=== PATIENT | female | born 1935 | race Caucasian/White ===

== ENCOUNTER 2017-03-30 11:21 | Emergency (ER) | payer OTHER, BC ==
[2017-03-30 11:33] VITALS: BP 128/76; PULSE 70; TEMP 98.4; BMI 25.5
[2017-03-30] MEDS ORDERED: KETOROLAC TROMETHAMINE 30 MG/1 ML VIAL IM ONE (12:08)
[2017-03-30] MEDS ORDERED: KETOROLAC TROMETHAMINE 30 MG/1 ML VIAL ONE (12:11)
--- NOTE | 2017-03-30 12:19 | PDOC ---
History of Present Illness - General Chief Complaint: Injury Stated Complaint: FALL Time Seen by Provider: 03/30/17 11:55 History Source: Patient Exam Limitations: No Limitations - History of Present Illness Initial Comments: 03/30/17 12:14 CC tripped and fell ontu shopping cart x 5 days ago with pain left lower ribs and left knee Occurred: reports: last week Severity: reports: moderate Pain Location: reports: chest, lower extremity Method of Injury: Yes: fall Past History - Past Medical History Allergies/Adverse Reactions: Allergies Allergy/AdvReac Type Severity Reaction Status Date / Time No Known Allergies Allergy Verified 03/30/17 11:29 Home Medications: Ambulatory Orders Unobtainable [Unobtainable] 03/30/17 Dementia: Yes HTN: Yes Psychiatric Problems: Yes (anxeity) - Suicide/Smoking/Psychosocial Hx Smoking History: Never smoked Have you smoked in the past 12 months: No Information on smoking cessation initiated: No Hx Alcohol Use: No Drug/Substance Use Hx: No Substance Use Type: None Review of Systems - Review of Systems Constitutional: No: Chills, Fever HEENTM: No: Symptoms Reported, Nose Pain Respiratory: No: Cough, Shortness of Breath, SOB with Exertion, SOB at Rest, Wheezing, Productive cough Cardiac (ROS): Yes: Chest Pain (left anterior lower CW pain) *Physical Exam - Vital Signs Last Vital Signs Temp Pulse Resp BP Pulse Ox 98.4 F 70 18 128/76 95 03/30/17 11:29 03/30/17 11:29 03/30/17 11:29 03/30/17 11:29 03/30/17 11:29 - Physical Exam General Appearance: Yes: Appropriately Dressed, Apparent Distress Neck: positive: Supple. negative: Tender, Rigid Respiratory/Chest: positive: Chest Tender (tender to area left lower anterior, lateral ribs, no obv deformity nor bruising), Lungs Clear, Normal Breath Sounds. negative: Labored Respiration Gastrointestinal/Abdominal: positive: Normal Bowel Sounds, Flat, Soft. negative : Tender, Organomegaly, Tenderness Musculoskeletal: positive: Other (ambulating well; bruising over patella with STS; FROM knee, no palp defomity) ED Treatment Course - RADIOLOGY Radiology Studies Ordered: Category Date Time Status RIBS-LEFT SIDE [RAD] Stat Radiology 03/30/17 12:05 Ordered Medical Decision Making - Medical Decision Making 03/30/17 12:32 xray read by me notes no fracture; will refer to ortho for joint pain unrelated to present Trauma; is taking Tylenol ES with good results at home *DC/Admit/Observation/Transfer Diagnosis at time of Disposition: Contusion of rib on left side Qualifiers: Encounter type: initial encounter Qualified Code(s): S20.212A - Contusion of left front wall of thorax, initial encounter; S20.212A - Contusion of left front wall of thorax, initial encounter Contusion of left patella Qualifiers: Encounter type: initial encounter Qualified Code(s): S80.02XA - Contusion of left knee, initial encounter; S80.02XA - Contusion of left knee, initial encounter - Discharge Dispostion Disposition: HOME Condition at time of disposition: Stable - Patient Instructions Additional Instructions: please see Dr Villarreal for shoulder pain/ knee pain; see local MD next week for reevaluation of rib injury
== END 2017-03-30 12:48 | disposition home or self-care (01) ==
LOC: JERFT 11:21
PROC: 3E0233Z Introduction of Anti-inflammatory into Muscle, Percutaneous Approach (ICD-10-PCS; principal; 2017-03-30)
DX: S80.02XA Contusion of left knee, initial encounter (principal); S20.212A Contusion of left front wall of thorax, initial encounter; I10 Essential (primary) hypertension; F03.90 Unspecified dementia, unspecified severity, without behavioral disturbance, psychotic disturbance, mood disturbance, and anxiety; F41.9 Anxiety disorder, unspecified; W01.0XXA Fall on same level from slipping, tripping and stumbling without subsequent striking against object, initial encounter; Y93.89 Activity, other specified; Y92.512 Supermarket, store or market as the place of occurrence of the external cause
CPT/HCPCS: 71101-TC; 96372; 99281-25

== ENCOUNTER 2019-01-04 10:40 | Emergency (ER) | payer OTHER, BC ==
[2019-01-04 10:55] VITALS: BP 126/62; PULSE 64; TEMP 98.2; BMI 23.5
[2019-01-04] MEDS ORDERED: IBUPROFEN 600 MG TABLET (FP) PO ONE ×2 (11:28→11:29)
--- NOTE | 2019-01-04 11:33 | PDOC ---
History of Present Illness - General Chief Complaint: Injury Stated Complaint: RT. HAND PAIN/ FALL Time Seen by Provider: 01/04/19 11:17 History Source: Patient Exam Limitations: No Limitations - History of Present Illness Initial Comments: 01/04/19 11:29 HISTORY OF PRESENT ILLNESS: 84-year-old woman past medical history of hypertension who presents emergency department for evaluation of right ankle pain status post trip and fall on 01/03. Patient states she was walking through her house her had left tissues in the middle floor. Patient tripped over shoes and fell forward landing on an outstretched right hand. Patient reports increased pain since the incident but has not taken any medication. Patient is right-hand dominant. She denies any chest pain, shortness of breath, lightheadedness, dizziness prior to fall. No recent travel or sick contacts. PAST MEDICAL HISTORY: see HPI SURGICAL HISTORY: Denies ALLERGIES: No known drug allergies REVIEW OF SYSTEMS General/Constitutional: Denies fever or chills. Denies weakness, weight change. HEENT: Denies change in vision. Denies ear pain or discharge. Denies sore throat. Cardiovascular: Denies chest pain or shortness of breath. Respiratory: Denies cough, wheezing, or hemoptysis. Gastrointestinal: Denies nausea, vomiting, diarrhea or constipation. Denies rectal bleeding. Genitourinary: Denies dysuria, frequency, or change in urination. Musculoskeletal: see HPI Skin and breasts: Denies rash or easy bruising. Neurologic: Denies headache, vertigo, loss of consciousness, or loss of sensation. Psychiatric: Denies depression or anxiety. Endocrine: Denies increased thirst. Denies abnormal weight change. Hematologic/Lymphatic: Denies anemia, easy bleeding, or history of blood clots. Allergic/Immunologic: Denies hives or skin allergy. Denies latex allergy. PHYSICAL EXAM General Appearance: Well-appearing, appropriately dressed. No apparent distress , no intoxication. Respiratory/Chest: Lungs CTAB. No shortness of breath, chest tenderness, respiratory distress, accessory muscle use. No crackles, rales, rhonchi, stridor , wheezing, dullness Cardiovascular: RRR. S1, S2. No JVD, murmur, bradycardia, tachycardia. Musculoskeletal/Extremities: Ecchymosis present to the dorsum of the right hand over the fourth and fifth metacarpals. Deformity present on palpation of the right fifth metacarpal. Increased pain with palpation. No crepitus present. Integumentary: Ecchymosis present to the dorsum of the right hand over the fourth and fifth metacarpals. 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 Fully oriented, alert. Appropriate mood/affect. Motor strength 5/5. No appreciable EOM palsy, facial droop or sensory deficit. Past History - Past Medical History Allergies/Adverse Reactions: Allergies Allergy/AdvReac Type Severity Reaction Status Date / Time No Known Allergies Allergy Verified 01/05/19 09:23 Home Medications: Ambulatory Orders Amlodipine Besylate [Norvasc -] 10 mg PO DAILY 01/04/19 Escitalopram Oxalate [Lexapro -] 20 mg PO DAILY 01/04/19 Lisinopril [Zestril] 20 mg PO DAILY 01/04/19 Metoprolol Tartrate [Lopressor -] 25 mg PO BID 01/04/19 Simvastatin [Zocor] 10 mg PO HS 01/04/19 COPD: No Dementia: Yes HTN: Yes Psychiatric Problems: Yes (anxeity) - Suicide/Smoking/Psychosocial Hx Smoking History: Never smoked Have you smoked in the past 12 months: No Hx Alcohol Use: No Drug/Substance Use Hx: No Substance Use Type: None *Physical Exam - Vital Signs Last Vital Signs Temp Pulse Resp BP Pulse Ox 98.2 F 64 18 126/62 95 01/04/19 10:52 01/04/19 10:52 01/04/19 10:52 01/04/19 10:52 01/04/19 10:52 Procedures - Consent Consent obtained: Verbal, From Patient - Splinting Splint Location: Right: Hand Pre-Proc Neuro Vasc Exam: normal Hand-Made Type: orthoglass Splint Type: Yes: Ulnar Post-Proc Neuro Vasc Exam: normal, unchanged from pre-exam Jass Bandage: 2" Sling: No Complications: No Post splint xray: No Progress: 01/04/19 11:52 pt tolerated well. ED Treatment Course - RADIOLOGY Radiology Studies Ordered: Category Date Time Status HAND- RIGHT [RAD] Stat Radiology 01/04/19 11:28 Ordered Medical Decision Making - Medical Decision Making 01/04/19 11:33 A/P: 84-year-old woman with right hand pain status post fall Given palpable deformity and increased pain upon palpation is a high likelihood of boxer's fracture. X-ray Motrin 600 mg orally Reassess 01/04/19 11:52 X-ray show an acute fracture through the neck of the right fifth distal metacarpal. Number angulation distal fracture fragment noted. No significant displacement. Splint Discharge home with orthopedic follow-up *DC/Admit/Observation/Transfer Diagnosis at time of Disposition: Boxer's fracture Qualifiers: Encounter type: subsequent encounter Fracture type: closed Fracture healing: with routine healing Qualified Code(s): S62.339D - Displaced fracture of neck of unspecified metacarpal bone, subsequent encounter for fracture with routine healing - Discharge Dispostion Disposition: HOME Condition at time of disposition: Fair Decision to Admit order: No - Referrals Referrals: Paula Blanco [Primary Care Provider] - Aristides Pierce MD [Staff Physician] - - Patient Instructions Additional Instructions: REST. Take Tylenol or Motrin as needed for pain. Follow manufacturers instructions for appropriate dosage. Apply ice for 20 minutes and removed for at least 20 minutes before reapplying the ice. Keep splint on at all times. Whenever possible keep your hand elevated to decrease swelling. You've been given the number for an orthopedist. If symptoms do not resolve within the next 7 days call the orthopedist for further evaluation. Return to emergency department for discoloration of the fingers, numbness or tingling to the fingers, worsening pain, or any other concerns. Thank you very much for choosing us to provide your emergent healthcare needs. - Post Discharge Activity
== END 2019-01-04 11:56 | disposition home or self-care (01) ==
LOC: JERFT 10:40
PROC: 2W3CX1Z Immobilization of Right Lower Arm using Splint (ICD-10-PCS; principal; 2019-01-04)
PROC: 2W3CX1Z Immobilization of Right Lower Arm using Splint (ICD-10-PCS; 2019-01-04)
DX: S62.339A Displaced fracture of neck of unspecified metacarpal bone, initial encounter for closed fracture (principal); W18.09XA Striking against other object with subsequent fall, initial encounter; Y93.89 Activity, other specified; Y92.008 Other place in unspecified non-institutional (private) residence as the place of occurrence of the external cause; I10 Essential (primary) hypertension; F41.9 Anxiety disorder, unspecified; F03.90 Unspecified dementia, unspecified severity, without behavioral disturbance, psychotic disturbance, mood disturbance, and anxiety
CPT/HCPCS: 29125; 73130-TC-RT-FY; 99282-25

== ENCOUNTER 2019-01-05 09:00 | Emergency (ER) | payer OTHER, BC ==
[2019-01-05 09:23] VITALS: BP 148/73; PULSE 70; TEMP 98; BMI 23.5
--- NOTE | 2019-01-05 09:30 | PDOC ---
History of Present Illness - General Chief Complaint: Edema Stated Complaint: RT HAND SWELLING Time Seen by Provider: 01/05/19 09:29 History Source: Patient Exam Limitations: No Limitations - History of Present Illness Initial Comments: 01/05/19 09:30 Patient came for evaluation of severe swelling and pain to right hand where was splinted yesterday for boxer's fracture. Had ulnar gutter splint placed but Jass wrap's became very tight and patient had some compression swelling with soft tissue contusions/inflammation at thenar eminence. Denies numbness or tingling to fingers but are painful 01/05/19 14:12 Timing/Duration: 24 hours Severity: moderate, severe Past History - Travel Traveled outside of the country in the last 30 days: No Close contact w/someone who was outside of country & ill: No - Past Medical History Allergies/Adverse Reactions: Allergies Allergy/AdvReac Type Severity Reaction Status Date / Time No Known Allergies Allergy Verified 01/05/19 09:23 Home Medications: Ambulatory Orders Amlodipine Besylate [Norvasc -] 10 mg PO DAILY 01/04/19 Escitalopram Oxalate [Lexapro -] 20 mg PO DAILY 01/04/19 Lisinopril [Zestril] 20 mg PO DAILY 01/04/19 Metoprolol Tartrate [Lopressor -] 25 mg PO BID 01/04/19 Simvastatin [Zocor] 10 mg PO HS 01/04/19 COPD: No Dementia: Yes HTN: Yes Psychiatric Problems: Yes (anxeity) - Suicide/Smoking/Psychosocial Hx Smoking History: Never smoked Have you smoked in the past 12 months: No Hx Alcohol Use: No Drug/Substance Use Hx: No Substance Use Type: None Review of Systems - Review of Systems Able to Perform ROS?: Yes Is the patient limited Gambian proficient: Yes Constitutional: Yes: See HPI. No: Symptoms Reported, Fever HEENTM: No: Symptoms Reported Musculoskeletal: Yes: See HPI, Joint Swelling, Joint Stiffness Integumentary: Yes: Symptoms Reported, See HPI, Bruising All Other Systems: Reviewed and Negative *Physical Exam - Vital Signs Last Vital Signs Temp Pulse Resp BP Pulse Ox 98 F 70 18 148/73 99 01/05/19 09:19 01/05/19 09:19 01/05/19 09:19 01/05/19 09:19 01/05/19 09:19 - Physical Exam General Appearance: Yes: Nourished, Appropriately Dressed, Apparent Distress, Mild Distress, Moderate Distress HEENT: positive: ZAC, Normal ENT Inspection, TMs Normal, Pharynx Normal, Pale Conjunctivae Extremity: positive: Normal Capillary Refill Integumentary: positive: Dry, Warm, Swelling (severe swelling to the hand with compression at site of Jass wrap. 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 intact, Fully Oriented, Alert, Normal Mood/ Affect, Normal Response, Motor Strength 5/5 *DC/Admit/Observation/Transfer Diagnosis at time of Disposition: Boxer's fracture Qualifiers: Encounter type: subsequent encounter Fracture type: closed Fracture healing: with routine healing Qualified Code(s): S62.339D - Displaced fracture of neck of unspecified metacarpal bone, subsequent encounter for fracture with routine healing - Discharge Dispostion Disposition: HOME Condition at time of disposition: Stable - Referrals Referrals: Vicente Warren MD [Staff Physician] - - Patient Instructions Printed Discharge Instructions: How to Take Care of Your Cast Additional Instructions: Rest, ice to area on and off for 15 minutes 4-6 times a day Avoid heavy lifting or exercise until pain and swelling is resolved or until further directed Keep area highly elevated to reduce swelling Use splints/Jass wrap as directed Followup with orthopedist in one to 2 days if not improving, if significantly improved may wait one week for followup with orthopedist May use ibuprofen every 6 hours as needed for pain - Post Discharge Activity
== END 2019-01-05 10:07 | disposition home or self-care (01) ==
LOC: JERFT 09:00
DX: S62.309D Unspecified fracture of unspecified metacarpal bone, subsequent encounter for fracture with routine healing (principal); X58.XXXD Exposure to other specified factors, subsequent encounter; F03.90 Unspecified dementia, unspecified severity, without behavioral disturbance, psychotic disturbance, mood disturbance, and anxiety; I10 Essential (primary) hypertension; F41.9 Anxiety disorder, unspecified
CPT/HCPCS: 99281-25

== ENCOUNTER 2020-08-08 09:04 | Inpatient (IN) | payer OTHER, BC ==
[2020-08-08] MEDS ORDERED: KETOROLAC TROMETHAMINE 30 MG/1 ML VIAL IM ONE (10:10)
[2020-08-08] MEDS ORDERED: morphine CARPU-JECT 4 MG/1 ML DISP.SYRIN IVPUSH ONE (10:13)
[2020-08-08] MEDS ORDERED: morphine SULFATE 4 MG/ML VIAL ONE (10:35)
[2020-08-08 10:54] LABS: BASO % 0.6 % (0-2.0); EOS % 0.5 % (0-4.5); HEMATOCRIT 44.4 % (32.4-45.2); HEMOGLOBIN 15.1 GM/dL (10.7-15.3); LYMPH % 7.5 % (8-40); MCH 31.9 pg (25.7-33.7); MEAN CELL VOLUME 93.9 fl (80-96); MEAN PLT VOLUME 7.6 fl (7.5-11.1); MONO % 5.8 % (3.8-10.2); NEUT % 85.6 % (42.8-82.8); PLATELET COUNT 189 K/MM3 (134-434); RBC 4.73 M/mm3 (3.60-5.2); RDW 13.7 % (11.6-15.6); WHITE BLOOD COUNT 10.2 K/mm3 (4.0-10.0)
[2020-08-08 10:57] LABS: POTASSIUM 3.6 mmol/L (3.5-5.1)
[2020-08-08 10:59] LABS: CALCIUM 9.2 mg/dL (8.5-10.1)
[2020-08-08 11:01] LABS: ALBUMIN 3.9 g/dl (3.4-5.0); BLOOD UREA NITROGEN 9.8 mg/dL (7-18)
[2020-08-08 11:04] LABS: CREATININE 0.9 mg/dL (0.55-1.3); INR 1.09 (0.83-1.09); PROTHROMBIN TIME (PATIENT) 13.1 SEC (9.7-13.0)
[2020-08-08 11:05] LABS: TOT PROT 7.4 g/dl (6.4-8.2)
[2020-08-08 11:14] LABS: BILIRUBIN,TOTAL 1.7 mg/dL (0.2-1)
[2020-08-08] MEDS ORDERED: ACETAMINOPHEN 325 MG TABLET (FP) PO PRN ×2 (12:26→12:45)
[2020-08-08] MEDS: oxyCODONE HCL 5 MG TABLET PO PRN ×2 (14:15→21:13)
[2020-08-08 15:33] VITALS: BMI 24.0
[2020-08-08] MEDS: METOPROLOL TARTRATE 25 MG TABLET (FP) PO SCH (21:13)
[2020-08-08] MEDS: HEPARIN NA (PORCINE) 5,000 UNITS/ML 1ML VIAL SQ SCH (21:15)
[2020-08-08] MEDS: ATORVASTATIN CA 10 MG TABLET (FP) PO SCH (21:15)
[2020-08-08 22:43] LABS: EPI CELLS 10 /uL (0-25.1); HYALINE CASTS 27 /uL (0-3.1); URINE APPEARANCE CLOUDY; URINE BACTERIA >9,000 /uL (0-1359); URINE BILIRUBIN NEGATIVE (NEGATIVE); URINE COLOR YELLOW; URINE GLUCOSE (UA) NEGATIVE (NEGATIVE); URINE KETONE 2+ (NEGATIVE); URINE LEUK ESTERASE 1+ (NEGATIVE); URINE NITRITE NEGATIVE (NEGATIVE); URINE PROTEIN 1+ (NEGATIVE); URINE UROBILINOGEN 0.2 mg/dL (0.2-1.0); URINE WBC 170 /uL (0-25.8)
[2020-08-08 23:27] LABS: URINE RBC 10.7 /uL (0-23.9)
[2020-08-09 09:10] LABS: BASO % 1.3 % (0-2.0); HEMATOCRIT 42.5 % (32.4-45.2); HEMOGLOBIN 14.5 GM/dL (10.7-15.3); LYMPH % 10.7 % (8-40); MCH 31.9 pg (25.7-33.7); MCHC 34.2 g/dl (32.0-36.0); MEAN CELL VOLUME 93.3 fl (80-96); MEAN PLT VOLUME 7.8 fl (7.5-11.1); MONO % 7.3 % (3.8-10.2); NEUT % 79.7 % (42.8-82.8); PLATELET COUNT 190 K/MM3 (134-434); RBC 4.56 M/mm3 (3.60-5.2); RDW 13.7 % (11.6-15.6); WHITE BLOOD COUNT 10.6 K/mm3 (4.0-10.0)
[2020-08-09 09:20] LABS: POTASSIUM 3.8 mmol/L (3.5-5.1)
[2020-08-09] MEDS ORDERED: ESCITALOPRAM OXALATE 10 MG TABLET ONE (09:20)
[2020-08-09 09:34] LABS: ALBUMIN 3.5 g/dl (3.4-5.0); BLOOD UREA NITROGEN 12.9 mg/dL (7-18); CALCIUM 8.9 mg/dL (8.5-10.1)
[2020-08-09 09:38] LABS: BILIRUBIN,TOTAL 1.5 mg/dL (0.2-1); CREATININE 0.8 mg/dL (0.55-1.3); TOT PROT 7.3 g/dl (6.4-8.2)
[2020-08-09] MEDS: HEPARIN NA (PORCINE) 5,000 UNITS/ML 1ML VIAL SQ SCH ×2 (09:40→22:15)
[2020-08-09] MEDS: ESCITALOPRAM OXALATE 20 MG TABLET PO SCH (09:41)
[2020-08-09] MEDS: amLODIPine BESYLATE 10 MG TABLET (FP) PO SCH (09:42)
[2020-08-09] MEDS: LISINOPRIL 20 MG TABLET PO SCH (09:42)
[2020-08-09] MEDS: METOPROLOL TARTRATE 25 MG TABLET (FP) PO SCH ×2 (09:42→22:15)
[2020-08-09] MEDS: oxyCODONE HCL 5 MG TABLET PO PRN ×2 (10:05→22:14)
[2020-08-09] MEDS: ATORVASTATIN CA 10 MG TABLET (FP) PO SCH (22:14)
[2020-08-10] MEDS ORDERED: ESCITALOPRAM OXALATE 10 MG TABLET ONE (09:20)
[2020-08-10] MEDS: amLODIPine BESYLATE 10 MG TABLET (FP) PO SCH (09:23)
[2020-08-10] MEDS: METOPROLOL TARTRATE 25 MG TABLET (FP) PO SCH ×2 (09:23→21:39)
[2020-08-10] MEDS: CHOLECALCIFEROL (VIT D3) 1,000 UNIT (25 MCG) TABLET PO SCH (09:24)
[2020-08-10] MEDS: HEPARIN NA (PORCINE) 5,000 UNITS/ML 1ML VIAL SQ SCH ×2 (09:24→21:38)
[2020-08-10] MEDS: LISINOPRIL 20 MG TABLET PO SCH (09:24)
[2020-08-10] MEDS: ESCITALOPRAM OXALATE 20 MG TABLET PO SCH (09:25)
[2020-08-10] MEDS: oxyCODONE HCL 5 MG TABLET PO PRN (09:25)
[2020-08-10] MEDS: POLYETHYLENE GLYCOL 3350 119 GM BTL PO SCH (10:43)
[2020-08-10] MEDS: CEPHALEXIN MONOHYDRATE 500 MG CAPSULE (UD) PO SCH ×3 (10:43→21:39)
[2020-08-10] MEDS: ATORVASTATIN CA 10 MG TABLET (FP) PO SCH (21:38)
[2020-08-11] MEDS: CEPHALEXIN MONOHYDRATE 500 MG CAPSULE (UD) PO SCH ×2 (05:38→13:16)
[2020-08-11 09:34] LABS: BASO % 1.3 % (0-2.0); EOS % 3.3 % (0-4.5); HEMATOCRIT 42.7 % (32.4-45.2); HEMOGLOBIN 14.4 GM/dL (10.7-15.3); LYMPH % 14.6 % (8-40); MCH 31.8 pg (25.7-33.7); MCHC 33.7 g/dl (32.0-36.0); MEAN CELL VOLUME 94.2 fl (80-96); MEAN PLT VOLUME 8.3 fl (7.5-11.1); MONO % 10.5 % (3.8-10.2); NEUT % 70.3 % (42.8-82.8); PLATELET COUNT 195 K/MM3 (134-434); RBC 4.54 M/mm3 (3.60-5.2); RDW 13.4 % (11.6-15.6); WHITE BLOOD COUNT 7.7 K/mm3 (4.0-10.0)
[2020-08-11 09:44] LABS: POTASSIUM 3.8 mmol/L (3.5-5.1)
[2020-08-11] MEDS ORDERED: ESCITALOPRAM OXALATE 10 MG TABLET ONE (09:56)
[2020-08-11] MEDS ORDERED: PT OWN MED DRAWER 7, Y5N ONE (09:59)
[2020-08-11] MEDS: LISINOPRIL 20 MG TABLET PO SCH (10:00)
[2020-08-11] MEDS: amLODIPine BESYLATE 10 MG TABLET (FP) PO SCH (10:00)
[2020-08-11] MEDS: METOPROLOL TARTRATE 25 MG TABLET (FP) PO SCH (10:00)
[2020-08-11] MEDS: CHOLECALCIFEROL (VIT D3) 1,000 UNIT (25 MCG) TABLET PO SCH (10:00)
[2020-08-11] MEDS: HEPARIN NA (PORCINE) 5,000 UNITS/ML 1ML VIAL SQ SCH (10:00)
[2020-08-11] MEDS: ESCITALOPRAM OXALATE 20 MG TABLET PO SCH (10:01)
[2020-08-11 10:07] LABS: ALBUMIN 3.4 g/dl (3.4-5.0); BLOOD UREA NITROGEN 23.1 mg/dL (7-18); CALCIUM 9.1 mg/dL (8.5-10.1)
[2020-08-11 10:11] LABS: CREATININE 0.8 mg/dL (0.55-1.3)
[2020-08-11 10:12] LABS: BILIRUBIN,TOTAL 1.4 mg/dL (0.2-1); TOT PROT 7.3 g/dl (6.4-8.2)
[2020-08-11] MEDS: POLYETHYLENE GLYCOL 3350 119 GM BTL PO SCH (10:32)
[2020-08-11 16:11] VITALS: BP 119/65; PULSE 84; TEMP 97.8
== END 2020-08-11 20:03 | DRG 536 ==
LOC: JER 09:04 → JERBED 10:29 → J6S 15:02
PROVIDERS: ADMIT Internal Medicine; ATTEND Internal Medicine
DX: S32.810A Multiple fractures of pelvis with stable disruption of pelvic ring, initial encounter for closed fracture (principal); N39.0 Urinary tract infection, site not specified; S32.511A Fracture of superior rim of right pubis, initial encounter for closed fracture; F03.90 Unspecified dementia, unspecified severity, without behavioral disturbance, psychotic disturbance, mood disturbance, and anxiety; I10 Essential (primary) hypertension; E78.5 Hyperlipidemia, unspecified; F41.9 Anxiety disorder, unspecified; B96.20 Unspecified Escherichia coli [E. coli] as the cause of diseases classified elsewhere; W01.0XXA Fall on same level from slipping, tripping and stumbling without subsequent striking against object, initial encounter; Y92.090 Kitchen in other non-institutional residence as the place of occurrence of the external cause
CPT/HCPCS: 36415; 72170-TC-FY; 73523-TC-FY; 73552-TC-RT-FY; 73562-TC-RT-FY; 80053; 81003; 85025; 85610; 86850; 86900; 86901; 87086; 87186; 93005; 93010; 97116-GP; 97162-GP; 99285-25; C9803; J1644; U0003

== ENCOUNTER 2020-09-22 13:42 | Emergency (ER) | payer OTHER, BC ==
[2020-09-22 13:49] VITALS: TEMP 97.5; BMI 28.7
[2020-09-22 14:46] VITALS: BP 160/87; PULSE 88
== END 2020-09-22 15:15 | disposition home or self-care (01) ==
LOC: JER 13:42
DX: M54.5 Low back pain (principal)
CPT/HCPCS: 72100-TC-FY; 99283-25

== ENCOUNTER 2020-09-28 11:45 | Inpatient (IN) | payer OTHER, BC ==
[2020-09-28] MEDS ORDERED: KETOROLAC TROMETHAMINE 15 MG/ML VIAL IM ONE (13:12)
[2020-09-28] MEDS ORDERED: METHOCARBAMOL 500 MG TABLET PO ONE (13:12)
[2020-09-28] MEDS ORDERED: KETOROLAC TROMETHAMINE 15 MG/ML VIAL ONE (14:09)
[2020-09-28] MEDS ORDERED: METHOCARBAMOL 500 MG TABLET ONE (14:09)
[2020-09-28 14:20] LABS: BASO % 1.7 % (0-2.0); EOS % 0.7 % (0-4.5); HEMATOCRIT 45.6 % (32.4-45.2); HEMOGLOBIN 15.6 GM/dL (10.7-15.3); LYMPH % 16.5 % (8-40); MCH 32.7 pg (25.7-33.7); MCHC 34.2 g/dl (32.0-36.0); MEAN CELL VOLUME 95.8 fl (80-96); MONO % 6.7 % (3.8-10.2); NEUT % 74.4 % (42.8-82.8); PLATELET COUNT 318 K/MM3 (134-434); RBC 4.76 M/mm3 (3.60-5.2); RDW 14.6 % (11.6-15.6); WHITE BLOOD COUNT 7.6 K/mm3 (4.0-10.0)
[2020-09-28 14:38] LABS: BLOOD UREA NITROGEN 9.5 mg/dL (7-18); CALCIUM 9.4 mg/dL (8.5-10.1)
[2020-09-28 14:39] LABS: ALBUMIN 3.5 g/dl (3.4-5.0)
[2020-09-28 14:41] LABS: CREATININE 0.8 mg/dL (0.55-1.3)
[2020-09-28 14:43] LABS: BILIRUBIN,TOTAL 0.5 mg/dL (0.2-1); TOT PROT 7.2 g/dl (6.4-8.2)
[2020-09-28 20:12] LABS: EPI CELLS 25 /uL (0-25.1); HYALINE CASTS 1 /uL (0-3.1); URINE APPEARANCE CLOUDY; URINE BACTERIA >9,000 /uL (0-1359); URINE BILIRUBIN NEGATIVE (NEGATIVE); URINE COLOR DK YELLOW; URINE GLUCOSE (UA) NEGATIVE (NEGATIVE); URINE KETONE 1+ (NEGATIVE); URINE LEUK ESTERASE 1+ (NEGATIVE); URINE NITRITE NEGATIVE (NEGATIVE); URINE PROTEIN 1+ (NEGATIVE); URINE RBC 19 /uL (0-23.9); URINE WBC 99 /uL (0-25.8)
[2020-09-28] MEDS: ATORVASTATIN CA 10 MG TABLET (FP) PO SCH (21:57)
[2020-09-28] MEDS: HEPARIN NA (PORCINE) 5,000 UNITS/ML 1ML VIAL SQ SCH (21:57)
[2020-09-28] MEDS: METOPROLOL TARTRATE 25 MG TABLET (FP) PO SCH (21:57)
[2020-09-28] MEDS ORDERED: ACETAMINOPHEN 325 MG TABLET (FP) PO PRN (22:13)
[2020-09-28] MEDS: oxyCODONE HCL 5 MG TABLET PO PRN (23:08)
[2020-09-29 03:17] VITALS: BMI 27.0
[2020-09-29] MEDS: ACETAMINOPHEN 325 MG TABLET (FP) PO PRN ×2 (09:03→18:10)
[2020-09-29] MEDS: amLODIPine BESYLATE 10 MG TABLET (FP) PO SCH (09:03)
[2020-09-29] MEDS: METOPROLOL TARTRATE 25 MG TABLET (FP) PO SCH ×2 (09:03→21:10)
[2020-09-29] MEDS: ESCITALOPRAM OXALATE 20 MG TABLET PO SCH (09:03)
[2020-09-29] MEDS: LISINOPRIL 20 MG TABLET PO SCH (09:03)
[2020-09-29] MEDS: HEPARIN NA (PORCINE) 5,000 UNITS/ML 1ML VIAL SQ SCH ×2 (09:03→21:10)
[2020-09-29] MEDS: SULFAMETHOXAZOLE/TRIMETHOPRIM 800MG/160MG D.S. TABLET PO SCH ×2 (12:05→21:10)
[2020-09-29] MEDS: oxyCODONE HCL 5 MG TABLET PO PRN (18:09)
[2020-09-29] MEDS: ATORVASTATIN CA 10 MG TABLET (FP) PO SCH (21:10)
[2020-09-30] MEDS: ACETAMINOPHEN 325 MG TABLET (FP) PO PRN ×3 (01:59→15:34)
[2020-09-30] MEDS: ESCITALOPRAM OXALATE 20 MG TABLET PO SCH (09:02)
[2020-09-30] MEDS: HEPARIN NA (PORCINE) 5,000 UNITS/ML 1ML VIAL SQ SCH ×2 (09:02→22:16)
[2020-09-30] MEDS: SULFAMETHOXAZOLE/TRIMETHOPRIM 800MG/160MG D.S. TABLET PO SCH (09:02)
[2020-09-30] MEDS: LISINOPRIL 20 MG TABLET PO SCH (09:02)
[2020-09-30] MEDS: METOPROLOL TARTRATE 25 MG TABLET (FP) PO SCH ×2 (09:02→22:16)
[2020-09-30] MEDS: amLODIPine BESYLATE 10 MG TABLET (FP) PO SCH (09:02)
[2020-09-30] MEDS: LACTOBACILLUS ACIDOPHILUS 1 TABLET PO SCH (17:56)
[2020-09-30] MEDS: oxyCODONE HCL 5 MG TABLET PO PRN (18:56)
[2020-09-30] MEDS: ATORVASTATIN CA 10 MG TABLET (FP) PO SCH (22:16)
[2020-10-01] MEDS: ACETAMINOPHEN 325 MG TABLET (FP) PO PRN (03:14)
[2020-10-01 06:40] VITALS: TEMP 98.3
[2020-10-01 08:36] LABS: CREATININE 0.8 mg/dL (0.55-1.3)
[2020-10-01] MEDS: ESCITALOPRAM OXALATE 20 MG TABLET PO SCH (10:12)
[2020-10-01] MEDS: METOPROLOL TARTRATE 25 MG TABLET (FP) PO SCH (10:12)
[2020-10-01] MEDS: amLODIPine BESYLATE 10 MG TABLET (FP) PO SCH (10:12)
[2020-10-01] MEDS: HEPARIN NA (PORCINE) 5,000 UNITS/ML 1ML VIAL SQ SCH (10:13)
[2020-10-01] MEDS: LISINOPRIL 20 MG TABLET PO SCH (10:13)
[2020-10-01] MEDS: LACTOBACILLUS ACIDOPHILUS 1 TABLET PO SCH (10:13)
[2020-10-01 12:43] VITALS: BP 126/57; PULSE 61
== END 2020-10-01 12:41 | DRG 536 ==
LOC: JERFT 11:45 → JER 11:45 → JERBED 13:26 → J5S 21:06
PROVIDERS: ADMIT Internal Medicine; ATTEND Internal Medicine
DX: S32.511A Fracture of superior rim of right pubis, initial encounter for closed fracture (principal); S32.19XA Other fracture of sacrum, initial encounter for closed fracture; N39.0 Urinary tract infection, site not specified; I10 Essential (primary) hypertension; E78.5 Hyperlipidemia, unspecified; M54.40 Lumbago with sciatica, unspecified side; W19.XXXA Unspecified fall, initial encounter; Y93.9 Activity, unspecified; Y92.89 Other specified places as the place of occurrence of the external cause; Y99.9 Unspecified external cause status
CPT/HCPCS: 36415; 72131-TC; 72192-TC; 80048; 80053; 81003; 85025; 87086; 87186; 93005; 93010; 97116-GP; 97161-GP; 99285-25; C9803; J1644; U0003; U0005

== ENCOUNTER 2021-12-01 12:14 | Inpatient (IN) | payer OTHER, BC ==
[2021-12-01 14:39] LABS: BASO % 0.6 % (0-2.0); EOS % 0.4 % (0-4.5); HEMATOCRIT 47.8 % (32.4-45.2); LYMPH % 12.6 % (8-40); MCH 30.9 pg (25.7-33.7); MCHC 33.5 g/dl (32.0-36.0); MEAN CELL VOLUME 92.1 fl (80-96); MEAN PLT VOLUME 7.3 fl (7.5-11.1); MONO % 4.8 % (3.8-10.2); NEUT % 81.6 % (42.8-82.8); PLATELET COUNT 275 10^3/uL (134-434); RBC 5.18 M/mm3 (3.60-5.2); RDW 13.7 % (11.6-15.6); WHITE BLOOD COUNT 9.1 K/mm3 (4.0-10.0)
[2021-12-01 14:45] LABS: INR 1.16 (0.83-1.09); PROTHROMBIN TIME (PATIENT) 13.4 SEC (9.7-13.0)
[2021-12-01 14:48] LABS: ACTIVATED PTT 27.8 SECONDS (25.2-36.5)
[2021-12-01 15:12] LABS: CALCIUM 9.4 mg/dL (8.5-10.1)
[2021-12-01 15:13] LABS: BLOOD UREA NITROGEN 9.9 mg/dL (7-18)
[2021-12-01 15:17] LABS: BILIRUBIN,TOTAL 0.9 mg/dL (0.2-1); TOT PROT 8.2 g/dl (6.4-8.2)
[2021-12-01 15:25] LABS: LACTIC ACID 2.3 mmol/L (0.4-2.0)
[2021-12-01] MEDS ORDERED: SODIUM CHLORIDE 0.9% 500 ML INFUS.BAG IV ONE (15:30)
[2021-12-01 17:57] LABS: EPI CELLS 21 /uL (0-25.1); HYALINE CASTS 3 /uL (0-3.1); URINE APPEARANCE CLOUDY; URINE BILIRUBIN NEGATIVE (NEGATIVE); URINE COLOR YELLOW; URINE GLUCOSE (UA) NEGATIVE (NEGATIVE); URINE KETONE 2+ (NEGATIVE); URINE LEUK ESTERASE NEGATIVE (NEGATIVE); URINE NITRITE NEGATIVE (NEGATIVE); URINE PROTEIN 2+ (NEGATIVE); URINE RBC 9 /uL (0-23.9); URINE UROBILINOGEN 0.2 mg/dL (0.2-1.0); URINE WBC 50 /uL (0-25.8)
[2021-12-01] MEDS ORDERED: amLODIPine BESYLATE 10 MG TABLET (FP) ONE (18:07)
[2021-12-01] MEDS: amLODIPine BESYLATE 10 MG TABLET (FP) PO SCH (18:10)
[2021-12-01 18:42] LABS: LACTIC ACID 2.7 mmol/L (0.4-2.0)
[2021-12-01 19:25] LABS: URINE BACTERIA HIGH /uL (0-1359)
[2021-12-01] MEDS: SODIUM CHLORIDE 1,000 ML IV SCH (23:35)
[2021-12-02 00:04] VITALS: BMI 20.7
[2021-12-02] MEDS ORDERED: CEFTRIAXONE 1 GM in DEXTROSE 5%-WATER - 50 ML IVPB ONE (04:30)
[2021-12-02] MEDS ORDERED: DEXTROSE 5%-WATER - 50 ML IVPB ONE (04:43)
[2021-12-02] MEDS ORDERED: cefTRIAXone SODIUM 1 GM VIAL ONE (04:43)
[2021-12-02] MEDS: CEFTRIAXONE 1 GM in DEXTROSE 5%-WATER - 50 ML IVPB SCH (09:52)
[2021-12-02] MEDS: amLODIPine BESYLATE 10 MG TABLET (FP) PO SCH (09:53)
[2021-12-02] MEDS: LISINOPRIL 20 MG TABLET PO SCH (09:53)
[2021-12-02] MEDS: ESCITALOPRAM OXALATE 20 MG TABLET PO SCH (09:53)
[2021-12-02] MEDS: ASPIRIN 81 MG CHEWABLE TABLETS PO SCH (09:53)
[2021-12-02] MEDS: HEPARIN NA (PORCINE) 5,000 UNITS/ML 1ML VIAL SQ SCH ×2 (09:54→22:03)
[2021-12-02] MEDS: METOPROLOL TARTRATE 25 MG TABLET (FP) PO SCH ×2 (09:54→22:00)
[2021-12-02 11:14] LABS: BASO % 0.4 % (0-2.0); HEMATOCRIT 42.6 % (32.4-45.2); HEMOGLOBIN 14.3 GM/dL (10.7-15.3); MCH 30.8 pg (25.7-33.7); MCHC 33.5 g/dl (32.0-36.0); MEAN PLT VOLUME 7.3 fl (7.5-11.1); MONO % 7.3 % (3.8-10.2); NEUT % 80.3 % (42.8-82.8); PLATELET COUNT 227 10^3/uL (134-434); RBC 4.63 M/mm3 (3.60-5.2); RDW 13.4 % (11.6-15.6); WHITE BLOOD COUNT 13.5 K/mm3 (4.0-10.0)
[2021-12-02 11:35] LABS: CALCIUM 8.9 mg/dL (8.5-10.1)
[2021-12-02 11:36] LABS: ALBUMIN 3.6 g/dl (3.4-5.0); BLOOD UREA NITROGEN 10.1 mg/dL (7-18)
[2021-12-02 11:39] LABS: CREATININE 0.8 mg/dL (0.55-1.3)
[2021-12-02 11:41] LABS: TOT PROT 7.3 g/dl (6.4-8.2)
[2021-12-02] MEDS: ATORVASTATIN CA 10 MG TABLET (FP) PO SCH (21:56)
[2021-12-03] MEDS: SODIUM CHLORIDE 1,000 ML IV SCH ×2 (06:37→18:08)
[2021-12-03] MEDS: ACETAMINOPHEN 325 MG TABLET (FP) PO PRN (07:56)
[2021-12-03] MEDS ORDERED: DEXTROSE 5%-WATER - 50 ML IVPB ONE (09:23)
[2021-12-03] MEDS ORDERED: cefTRIAXone SODIUM 1 GM VIAL ONE (09:23)
[2021-12-03] MEDS: ASPIRIN 81 MG CHEWABLE TABLETS PO SCH (09:26)
[2021-12-03] MEDS: amLODIPine BESYLATE 10 MG TABLET (FP) PO SCH (09:26)
[2021-12-03] MEDS: ESCITALOPRAM OXALATE 20 MG TABLET PO SCH (09:26)
[2021-12-03] MEDS: METOPROLOL TARTRATE 25 MG TABLET (FP) PO SCH ×2 (09:26→21:52)
[2021-12-03] MEDS: HEPARIN NA (PORCINE) 5,000 UNITS/ML 1ML VIAL SQ SCH ×2 (09:26→21:53)
[2021-12-03] MEDS: LISINOPRIL 20 MG TABLET PO SCH (09:26)
[2021-12-03] MEDS: CEFTRIAXONE 1 GM in DEXTROSE 5%-WATER - 50 ML IVPB SCH (09:27)
[2021-12-03] MEDS: ATORVASTATIN CA 10 MG TABLET (FP) PO SCH (21:52)
[2021-12-04] MEDS: amLODIPine BESYLATE 10 MG TABLET (FP) PO SCH (09:11)
[2021-12-04] MEDS: LISINOPRIL 20 MG TABLET PO SCH (09:11)
[2021-12-04] MEDS: ASPIRIN 81 MG CHEWABLE TABLETS PO SCH (09:11)
[2021-12-04] MEDS: METOPROLOL TARTRATE 25 MG TABLET (FP) PO SCH ×2 (09:11→22:04)
[2021-12-04] MEDS: HEPARIN NA (PORCINE) 5,000 UNITS/ML 1ML VIAL SQ SCH ×2 (09:12→22:04)
[2021-12-04] MEDS: ESCITALOPRAM OXALATE 20 MG TABLET PO SCH (09:16)
[2021-12-04] MEDS ORDERED: cefTRIAXone SODIUM 1 GM VIAL ONE (09:38)
[2021-12-04] MEDS ORDERED: DEXTROSE 5%-WATER - 50 ML IVPB ONE (09:38)
[2021-12-04] MEDS: CEFTRIAXONE 1 GM in DEXTROSE 5%-WATER - 50 ML IVPB SCH (09:40)
[2021-12-04] MEDS: SODIUM CHLORIDE 1,000 ML IV SCH (22:01)
[2021-12-04] MEDS: ATORVASTATIN CA 10 MG TABLET (FP) PO SCH (22:04)
[2021-12-05 08:13] LABS: BASO % 1.4 % (0-2.0); EOS % 3.2 % (0-4.5); HEMATOCRIT 40.3 % (32.4-45.2); HEMOGLOBIN 13.9 GM/dL (10.7-15.3); LYMPH % 22.4 % (8-40); MCH 31.3 pg (25.7-33.7); MCHC 34.5 g/dl (32.0-36.0); MEAN CELL VOLUME 90.6 fl (80-96); MEAN PLT VOLUME 7.9 fl (7.5-11.1); MONO % 7.2 % (3.8-10.2); NEUT % 65.8 % (42.8-82.8); PLATELET COUNT 228 10^3/uL (134-434); RBC 4.45 M/mm3 (3.60-5.2); RDW 13.3 % (11.6-15.6); WHITE BLOOD COUNT 5.7 K/mm3 (4.0-10.0)
[2021-12-05 08:43] LABS: BLOOD UREA NITROGEN 9.2 mg/dL (7-18); CALCIUM 8.8 mg/dL (8.5-10.1)
[2021-12-05 08:44] LABS: ALBUMIN 3.3 g/dl (3.4-5.0)
[2021-12-05 08:46] LABS: CREATININE 0.7 mg/dL (0.55-1.3)
[2021-12-05 08:48] LABS: BILIRUBIN,TOTAL 0.6 mg/dL (0.2-1); TOT PROT 6.5 g/dl (6.4-8.2)
[2021-12-05] MEDS ORDERED: cefTRIAXone SODIUM 1 GM VIAL ONE (08:49)
[2021-12-05] MEDS: CEFTRIAXONE 1 GM in DEXTROSE 5%-WATER - 50 ML IVPB SCH (09:19)
[2021-12-05] MEDS: amLODIPine BESYLATE 10 MG TABLET (FP) PO SCH (09:20)
[2021-12-05] MEDS: HEPARIN NA (PORCINE) 5,000 UNITS/ML 1ML VIAL SQ SCH ×2 (09:20→21:47)
[2021-12-05] MEDS: METOPROLOL TARTRATE 25 MG TABLET (FP) PO SCH ×2 (09:20→21:48)
[2021-12-05] MEDS: ESCITALOPRAM OXALATE 20 MG TABLET PO SCH (09:20)
[2021-12-05] MEDS: ASPIRIN 81 MG CHEWABLE TABLETS PO SCH (09:20)
[2021-12-05] MEDS: LISINOPRIL 20 MG TABLET PO SCH (09:20)
[2021-12-05] MEDS: CLOPIDOGREL BISULFATE 75 MG TABLET (FP) PO SCH (13:20)
[2021-12-05] MEDS: ATORVASTATIN CA 10 MG TABLET (FP) PO SCH (21:48)
[2021-12-06] MEDS: ASPIRIN 81 MG CHEWABLE TABLETS PO SCH (09:23)
[2021-12-06] MEDS: LISINOPRIL 20 MG TABLET PO SCH (09:23)
[2021-12-06] MEDS: METOPROLOL TARTRATE 25 MG TABLET (FP) PO SCH ×2 (09:23→21:20)
[2021-12-06] MEDS: amLODIPine BESYLATE 10 MG TABLET (FP) PO SCH (09:23)
[2021-12-06] MEDS: CLOPIDOGREL BISULFATE 75 MG TABLET (FP) PO SCH (09:23)
[2021-12-06] MEDS: ESCITALOPRAM OXALATE 20 MG TABLET PO SCH (09:23)
[2021-12-06] MEDS: CEPHALEXIN MONOHYDRATE 500 MG CAPSULE (UD) PO SCH ×2 (09:23→21:20)
[2021-12-06] MEDS: HEPARIN NA (PORCINE) 5,000 UNITS/ML 1ML VIAL SQ SCH ×2 (09:24→21:20)
[2021-12-06] MEDS: ATORVASTATIN CA 10 MG TABLET (FP) PO SCH (21:20)
[2021-12-06] MEDS: ACETAMINOPHEN 325 MG TABLET (FP) PO PRN (21:25)
[2021-12-07] MEDS: SODIUM CHLORIDE 1,000 ML IV SCH ×2 (08:03→23:52)
[2021-12-07] MEDS: HEPARIN NA (PORCINE) 5,000 UNITS/ML 1ML VIAL SQ SCH ×2 (09:40→21:54)
[2021-12-07] MEDS: CEPHALEXIN MONOHYDRATE 500 MG CAPSULE (UD) PO SCH ×2 (09:41→21:55)
[2021-12-07] MEDS: CLOPIDOGREL BISULFATE 75 MG TABLET (FP) PO SCH (09:41)
[2021-12-07] MEDS: ESCITALOPRAM OXALATE 20 MG TABLET PO SCH (09:41)
[2021-12-07] MEDS: ASPIRIN 81 MG CHEWABLE TABLETS PO SCH (09:41)
[2021-12-07] MEDS: LISINOPRIL 20 MG TABLET PO SCH (09:41)
[2021-12-07] MEDS: amLODIPine BESYLATE 10 MG TABLET (FP) PO SCH (09:42)
[2021-12-07] MEDS: METOPROLOL TARTRATE 25 MG TABLET (FP) PO SCH ×2 (09:42→21:55)
[2021-12-07] MEDS: ATORVASTATIN CA 10 MG TABLET (FP) PO SCH (21:55)
[2021-12-08] MEDS: ASPIRIN 81 MG CHEWABLE TABLETS PO SCH (09:44)
[2021-12-08] MEDS: ESCITALOPRAM OXALATE 20 MG TABLET PO SCH (09:44)
[2021-12-08] MEDS: LISINOPRIL 20 MG TABLET PO SCH (09:44)
[2021-12-08] MEDS: CLOPIDOGREL BISULFATE 75 MG TABLET (FP) PO SCH (09:44)
[2021-12-08] MEDS: METOPROLOL TARTRATE 25 MG TABLET (FP) PO SCH (09:44)
[2021-12-08] MEDS: HEPARIN NA (PORCINE) 5,000 UNITS/ML 1ML VIAL SQ SCH (09:45)
[2021-12-08] MEDS: amLODIPine BESYLATE 10 MG TABLET (FP) PO SCH (09:45)
[2021-12-08] MEDS: CEPHALEXIN MONOHYDRATE 500 MG CAPSULE (UD) PO SCH (09:45)
[2021-12-08 11:07] VITALS: BP 121/66; PULSE 67; TEMP 98.5
== END 2021-12-08 12:32 | disposition home or self-care (01) | DRG 64 ==
LOC: JER 12:14 → JERBED 14:24 → J4W 23:10
PROVIDERS: ADMIT Internal Medicine; ATTEND Internal Medicine
DX: I63.89 Other cerebral infarction (principal); G93.41 Metabolic encephalopathy; N39.0 Urinary tract infection, site not specified; I24.8 Other forms of acute ischemic heart disease; I25.10 Atherosclerotic heart disease of native coronary artery without angina pectoris; R47.01 Aphasia; B96.1 Klebsiella pneumoniae [K. pneumoniae] as the cause of diseases classified elsewhere; E78.00 Pure hypercholesterolemia, unspecified; F41.8 Other specified anxiety disorders; R00.0 Tachycardia, unspecified
CPT/HCPCS: 0241U-QW; 36415; 70450-TC; 70551-TC; 71045-TC-FY; 80053; 81003; 82550; 83605; 84484; 85025; 85610; 85730; 87040; 87086; 87186; 93005; 93010; 93225; 93226; 93306-TC; 93880-TC; 97116-GP; 97162-GP; 99285-25; C9803-CS; J1644; U0003; U0005

== ENCOUNTER 2023-09-12 05:16 | Day surgery (SDC) | payer OTHER, BC ==
[2023-09-06 14:59] VITALS: BMI 20.9
[2023-09-12] MEDS ORDERED: DEXTROSE 5%-0.45% SALINE 1,000 ML IV SCH (12:45)
[2023-09-12] MEDS ORDERED: IBUPROFEN 800 MG/8 ML IJ IVPB SCH (12:45)
[2023-09-12] MEDS ORDERED: CEFTRIAXONE 1 GM in DEXTROSE 5%-WATER - 50 ML IVPB ONE (13:00)
[2023-09-12] MEDS ORDERED: FENTANYL CITRATE/PF 50 MCG/ML VIAL ONE (13:01)
[2023-09-12] MEDS ORDERED: PROPOFOL 20 ML ONE (13:01)
[2023-09-12] MEDS ORDERED: ONDANSETRON 4 MG/2 ML VIAL IVPUSH PRN (13:53)
[2023-09-12] MEDS ORDERED: ACETAMINOPHEN INJECTION 100 ML IVPB ONE (13:53)
[2023-09-12] MEDS: ACETAMINOPHEN 1000 MG/100 ML BAG IVPB ONE ×2 (13:56→14:37)
[2023-09-12] MEDS ORDERED: LACTATED RINGERS SOLUTION 1,000 ML IV SCH (14:00)
[2023-09-12 15:36] VITALS: BP 156/89; PULSE 88; RESP 20; TEMP 97.9
== END 2023-09-12 15:25 | disposition home or self-care (01) ==
LOC: JASU-SURG 05:16
PROVIDERS: ATTEND Urology
PROC: 0TC68ZZ Extirpation of Matter from Right Ureter, Via Natural or Artificial Opening Endoscopic (ICD-10-PCS; principal; 2023-09-12 12:00)
PROC: 0T768DZ Dilation of Right Ureter with Intraluminal Device, Via Natural or Artificial Opening Endoscopic (ICD-10-PCS; 2023-09-12 12:00)
DX: N20.1 Calculus of ureter (principal)
CPT/HCPCS: 76000-TC-FY; 94760; C1758; C2617; J0131